=== PATIENT | male | born 1990 | race Hispanic/Latino ===

== ENCOUNTER 2020-03-17 13:10 | Emergency (ER) | payer OTHER ==
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
[2020-03-17 14:14] VITALS: BP 127/65
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
== END 2020-03-17 15:24 | disposition home or self-care (01) ==
LOC: ED 13:10
DX: S00.83XA Contusion of other part of head, initial encounter (principal); R68.84 Jaw pain; Z79.899 Other long term (current) drug therapy; X58.XXXA Exposure to other specified factors, initial encounter; Y93.89 Activity, other specified; Y92.89 Other specified places as the place of occurrence of the external cause; Y99.8 Other external cause status
CPT/HCPCS: 70110